=== PATIENT | female | born 1995 | race Caucasian/White ===

== ENCOUNTER → 2018-04-17 | Outpatient (CLI) | payer OTHER ==
[~2018-04-17] MED LIST: GADOBUTROL 7.5 MMOL/7.5 ML PFS ONE
== END | disposition home or self-care (01) ==
LOC: RAD 14:42
PROVIDERS: ATTEND Registered Nurse
DX: G43.711 Chronic migraine without aura, intractable, with status migrainosus (principal)
CPT/HCPCS: 70553; A9585

== ENCOUNTER 2018-05-22 22:41 | Emergency (ER) | payer OTHER ==
[~2018-05-22] VITALS: Ht 177.8 cm; Wt 64.0 kg
[2018-05-22 22:43] VITALS: BP 138/7
--- NOTE | 2018-05-22 23:56 | NUR ---
TO ROOM FROM LOBBY. NAD.
[2018-05-23] MEDS ORDERED: SERT50TA28 PO
[2018-05-23] MEDS ORDERED: PROPARACAINE OPHTH 0.5%, 15ML ONE (00:05)
== END 2018-05-23 00:40 | disposition home or self-care (01) ==
LOC: ED 23:59
DX: H57.12 Ocular pain, left eye (principal)
CPT/HCPCS: 99282

== ENCOUNTER 2020-09-12 09:14 | Emergency (ER) | payer OTHER ==
[~2020-09-12] VITALS: Ht 172.7 cm; Wt 69.8 kg
[~2020-09-12 09:14] MED LIST changes: -GADOBUTROL 7.5 MMOL/7.5 ML PFS ONE; +SERT50TA28 PO
[2020-09-12] MEDS ORDERED: DEXAMETHASONE 4 MG TABLET PO ONE (09:30)
[2020-09-12] MEDS ORDERED: AMPICILLIN/SULBACTAM 3 GM in SODIUM CHLORIDE 0.9% 100 ML IV ONE (10:00)
[2020-09-12] MEDS ORDERED: LIDOCAINE 1%-EPI 1:100K, 20ML INFIL ONE (10:00)
[2020-09-12] MEDS ORDERED: BENZOCAINE AEROSOL SPRAY 20%, 60ML TP ONE (10:00)
[2020-09-12] MEDS ORDERED: BENZOCAINE AEROSOL SPRAY 20%, 60ML ONE (10:08)
[2020-09-12] MEDS ORDERED: LIDOCAINE 1%-EPI 1:100K, 20ML ONE (10:09)
[2020-09-12] MEDS ORDERED: DEXAMETHASONE 4 MG TABLET ONE (10:09)
--- NOTE | 2020-09-12 10:35 | NUR ---
ERPA AT BEDSIDE TO DRAIN ABSCESS.
[2020-09-12 10:44] VITALS: BP 118/81
--- NOTE | 2020-09-12 11:03 | NUR ---
IV removed with tip intact. Patient given discharge instructions and prescription and they have confirmed that they understand the instructions. Patient stable and ambulatory with steady gait from ED.
== END 2020-09-12 11:04 | disposition home or self-care (01) ==
LOC: ED 09:47
DX: J36 Peritonsillar abscess (principal)
CPT/HCPCS: 42999; 87081; 87880; 96365; 99284; J0295

== ENCOUNTER 2020-09-24 11:48 | Day surgery (SDC) | payer OTHER ==
[~2020-09-24] VITALS: Ht 175.3 cm; Wt 69.9 kg
[2020-09-24 12:13] VITALS: BP 138/87
[2020-09-24] MEDS ORDERED: BIRTH CONTROL PO (12:17)
[2020-09-24] MEDS ORDERED: BIRTH CONTROL (12:17)
[2020-09-24] MEDS ORDERED: LACTATED RINGERS 1,000 ML IV SCH (12:30)
[2020-09-24] MEDS ORDERED: CHLORHEXIDINE 15 ML UDC PO ONE (12:30)
[2020-09-24] MEDS ORDERED: OXYMETAZOLINE NASAL SPRAY 0.05%,30ML ONE (14:04)
[2020-09-24] MEDS ORDERED: DEXAMETHASONE 4 MG/ML, 5ML ONE (14:04)
[2020-09-24] MEDS ORDERED: FENTANYL PF 250 MCG/5ML ONE (14:28)
[2020-09-24] MEDS ORDERED: MIDAZOLAM 1 MG/ML, 2ML ONE (14:28)
[2020-09-24] MEDS ORDERED: DEXAMETHASONE 4 MG/ML, 1ML ONE ×3 (14:53→15:06)
[2020-09-24] MEDS ORDERED: PROPOFOL 10 MG/ML, 20ML ONE (14:57)
[2020-09-24] MEDS ORDERED: ONDANSETRON 2MG/ML, 2ML ONE ×2 (15:20)
[2020-09-24] MEDS ORDERED: MEPERIDINE/PF 25MG/0.5ML IVPush PRN (15:30)
[2020-09-24] MEDS ORDERED: PROMETHAZINE 25 MG/ML, 1ML IVPush PRN (15:30)
[2020-09-24] MEDS ORDERED: FENTANYL PF 100 MCG/2ML IV PRN (15:30)
[2020-09-24] MEDS ORDERED: HYDROmorphone 1 MG/ML, 1ML INJ IVPush PRN (15:30)
[2020-09-24] MEDS ORDERED: ACETAMINOPHEN 325 MG TABLET PO PRN (15:30)
[2020-09-24] MEDS ORDERED: OXYcodone 5 MG/5 ML ORAL.SOL UDC PO PRN (15:30)
[2020-09-24] MEDS ORDERED: LABETALOL 5MG/ML, 20ML IV PRN (15:30)
[2020-09-24] MEDS ORDERED: hydrALAzine 20 MG/ML, 1ML IV PRN (15:30)
[2020-09-24] MEDS ORDERED: ONDANSETRON 2MG/ML, 2ML IVPush PRN (15:30)
[2020-09-24] MEDS ORDERED: OXYcodone 5 MG/5 ML ORAL.SOL UDC ONE (15:46)
[2020-09-24] MEDS ORDERED: ACETAMINOPHEN 650 MG/20.3 ML UDC ONE (15:47)
== END 2020-09-24 16:55 | disposition home or self-care (01) ==
LOC: OUT 11:48
PROVIDERS: ATTEND Otolaryngology
DX: J03.91 Acute recurrent tonsillitis, unspecified (principal); F32.9 Major depressive disorder, single episode, unspecified; F41.9 Anxiety disorder, unspecified; Z20.822 Contact with and (suspected) exposure to COVID-19
CPT/HCPCS: 36415; 42821; 84703; 87635; 88304; J1100; J2250; J2405; J2704; J3010; J7120